=== PATIENT | female | born 1960 | race Caucasian/White ===

== ENCOUNTER → 2018-01-10 | Outpatient (CLI) | payer OTHER ==
[~2018-01-10] MED LIST: AMOXICILLIN500 M2 PO; PREDNISONE20 M1 PO
== END | disposition home or self-care (01) ==
LOC: MAMMO 12-28 10:20
DX: Z12.31 Encounter for screening mammogram for malignant neoplasm of breast (principal)

== ENCOUNTER → 2018-03-03 | Day surgery (SDC) | payer OTHER ==
[~2018-03-03] VITALS: Ht 162.5 cm; Wt 99.8 kg
[~2018-03-03] MED LIST changes: +CELEXA10 MG PO; +PRAVACHOL40 MG PO; +PRILOSEC20 M1 PO; +TOPROL XL25 MG PO
--- NOTE | ~2018-03-03 | O ---
[place], [place] OPERATIVE NOTE NAME: HERSON RAMIREZ UNIT #: [id number] ROOM: DOCTOR: LUIS HELTON MD BIRTHDATE: [birth year] DOS: 03/03/2018 PROCEDURES: 1. Esophagogastroduodenoscopy and biopsy. 2. Colonoscopy. INDICATION: GERD and colon cancer screening. An informed consent was obtained from the patient after indication of procedures, alternatives, and potential complications were explained to her. PROCEDURE MEDICATION: Sedation was administered by Anesthesiology Department. SCOPE USED: Olympus pediatric colonoscope variable stiffness GIF-180. Depth of insertion with upper endoscopy was descending duodenum, with the colonoscopy was to the cecum which was identified by the usual landmarks, the appendiceal orifice, ileocecal valve and triangular fold, in addition to transillumination in the right lower quadrant. FINDINGS: After adequate sedation, the patient was placed in left lateral decubitus position. Upper endoscopy was performed first. Scope was introduced under direct visualization through the upper esophageal sphincter into the esophagus. Esophageal mucosa appeared normal with no ulcerations or strictures. Lower esophageal sphincter was identified at 38 cm from incisors, normal appearing Z line. The stomach was then intubated. Gastric mucosa inspected. Moderate gastritis was seen. No discrete ulcers or active bleeding. CLOtest was performed from gastric antrum and body. On retroflexed views in the fundus, a grade 2 sliding hiatal hernia was identified. Pylorus was intubated easily. The duodenal bulb and descending duodenum were within normal range. The scope was then withdrawn after the stomach was decompressed. We then proceeded with the colonoscopy. Rectal examination showed a diminished sphincter tone and no external hemorrhoids. Scope was introduced into the rectum, then advanced to the cecum with no difficulty. The prep was good. The colon mucosa appeared normal with no evidence of polyps, diverticular ulcerations. Retroflexed views in the rectum showed grade 1 internal hemorrhoids. The scope was then withdrawn after the rectum was decompressed. The patient tolerated the procedures well. IMPRESSION: 1. Medium sized hiatal hernia. 2. Gastritis, CLOtest performed. 3. Normal colon mucosa, no polyps seen. 4. Internal hemorrhoids. PLAN: We will review the CLOtest results and treat the patient accordingly. Repeat screening colonoscopy was advised in 10 years. Office followup will be scheduled in 2-3 weeks. [place], [place] OPERATIVE NOTE NAME: HERSON RAMIREZ UNIT #: [id number] ROOM: DOCTOR: LUIS HELTON MD BIRTHDATE: [birth year] LUIS HELTON MD CM:OPRECORD:OPERATIVE NOTE [id number] LUIS HELTON MD 03/03/18 2005 interface
[2018-03-03 07:36] VITALS: BP 142/77
[2018-03-03 08:15] VITALS: BP 125/90
[2018-03-03 08:24] VITALS: BP 126/69
[2018-03-03 08:42] VITALS: BP 138/58
== END | disposition home or self-care (01) ==
LOC: SDC 02-28 08:00
DX: Z12.11 Encounter for screening for malignant neoplasm of colon (principal); K29.70 Gastritis, unspecified, without bleeding; K44.9 Diaphragmatic hernia without obstruction or gangrene; K64.8 Other hemorrhoids; I10 Essential (primary) hypertension; M19.90 Unspecified osteoarthritis, unspecified site; K21.9 Gastro-esophageal reflux disease without esophagitis; E78.5 Hyperlipidemia, unspecified; E66.01 Morbid (severe) obesity due to excess calories; F32.9 Major depressive disorder, single episode, unspecified; Z85.828 Personal history of other malignant neoplasm of skin; Z90.49 Acquired absence of other specified parts of digestive tract; Z79.899 Other long term (current) drug therapy; Z79.82 Long term (current) use of aspirin; Z82.49 Family history of ischemic heart disease and other diseases of the circulatory system; Z83.3 Family history of diabetes mellitus; Z68.37 Body mass index [BMI] 37.0-37.9, adult

== ENCOUNTER → 2018-04-03 | Outpatient (CLI) | payer OTHER ==
--- NOTE | ~2018-04-03 | EKG ---
[place], [place] ELECTROCARDIOGRAM REPORT NAME: HERSON DIAS UNIT #: [id number] ROOM: DOCTOR: EPIPHANY DRAFT REPORT BIRTHDATE: [address] 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
[2018-04-03 10:32] LABS: HEMATOCRIT 42.9 % (37.0-47.0); HEMOGLOBIN 14.4 g/dl (12.0-16.0); MEAN CELL VOLUME 86.3 fl (81.0-99.0); MEAN CORPUSCULAR HGB CONC 33.6 g/dl (33.0-37.0); MEAN PLATELET VOLUME 12.8 fl (9.6-12.3); RED BLOOD COUNT 4.97 10*6/uL (4.10-5.10); RED CELL DISTRI WIDTH 14.1 % (0-14.5); WHITE BLOOD COUNT 7.6 10*3/uL (4.8-10.8)
[2018-04-03 10:57] LABS: ALBUMIN 3.7 gm/dl (3.1-4.5); ALKALINE PHOSPHATASE 176 U/L (45-117); BUN 21 mg/dl (7-24); CHLORIDE 106 mmol/L (98-107); CHOLESTEROL 139 mg/dL (<200); CREATININE 1.03 mg/dL (0.55-1.02); HDL CHOLESTEROL 43 mg/dl (40-60); LDL CHOLESTEROL 73 mg/dL (9-159); POTASSIUM 3.7 mmol/L (3.5-5.1); SGOT/AST 29 IU/L (3-35); SGPT/ALT 48 U/L (12-78); SODIUM 140 mmol/L (136-145); TOTAL PROTEIN 7.6 gm/dL (6.4-8.2); TRIGLYCERIDES 114 mg/dl (<150); VLDL CHOLESTEROL 23 mg/dL (6-40)
== END | disposition home or self-care (01) ==
LOC: LAB 09:34
PROVIDERS: Registered Nurse Flight
DX: I10 Essential (primary) hypertension (principal); E78.2 Mixed hyperlipidemia; G89.29 Other chronic pain

== ENCOUNTER → 2018-04-26 | Outpatient (CLI) | payer OTHER | END | disposition home or self-care (01) | LOC: US 14:58 | DX: R60.0 Localized edema (principal) ==

== ENCOUNTER → 2018-07-20 | Outpatient (CLI) | payer OTHER ==
[2018-07-20 10:39] LABS: BASO % 0.4 % (0.0-1.0); EOS # 0.2 10*3/uL (0.0-0.4); EOS % 1.9 % (1.0-4.0); HEMOGLOBIN 14.1 g/dl (12.0-16.0); LYMPH # 2.3 10*3/uL (1.3-4.4); LYMPH % 27.5 % (27.0-41.0); MEAN CELL VOLUME 88.1 fl (81.0-99.0); MEAN CORPUSCULAR HGB 29.6 pg (27.0-31.0); MEAN CORPUSCULAR HGB CONC 33.6 g/dl (33.0-37.0); MEAN PLATELET VOLUME 11.7 fl (9.6-12.3); MONO # 0.5 10*3/uL (0.1-1.0); MONO % 5.6 % (3.0-9.0); NEUT # 5.3 10*3/uL (2.3-7.9); NEUT % 64.1 % (47.0-73.0); PLATELET COUNT AUTOMATED 211 10*3/uL (130-400); RED BLOOD COUNT 4.77 10*6/uL (4.10-5.10); RED CELL DISTRI WIDTH 13.8 % (0-14.5); WHITE BLOOD COUNT 8.3 10*3/uL (4.8-10.8)
[2018-07-20 11:01] LABS: ALBUMIN 3.7 gm/dl (3.1-4.5); BUN 18 mg/dl (7-24); CHLORIDE 105 mmol/L (98-107); CHOLESTEROL 150 mg/dL (<200); CREATININE 1.06 mg/dL (0.55-1.02); POTASSIUM 3.9 mmol/L (3.5-5.1); SGOT/AST 28 IU/L (3-35); SGPT/ALT 59 U/L (12-78); SODIUM 139 mmol/L (136-145)
[2018-07-20 11:03] LABS: ALKALINE PHOSPHATASE 177 U/L (45-117); HDL CHOLESTEROL 40 mg/dl (40-60); LDL CHOLESTEROL 81 mg/dL (9-159); TOTAL PROTEIN 7.7 gm/dL (6.4-8.2); TRIGLYCERIDES 147 mg/dl (<150); VLDL CHOLESTEROL 29 mg/dL (6-40)
== END | disposition home or self-care (01) ==
LOC: LAB 09:39 → US 10:00
PROVIDERS: Registered Nurse Flight
DX: K76.0 Fatty (change of) liver, not elsewhere classified (principal); R74.8 Abnormal levels of other serum enzymes; N18.3 Chronic kidney disease, stage 3 (moderate); E78.2 Mixed hyperlipidemia; Z90.49 Acquired absence of other specified parts of digestive tract

== ENCOUNTER 2020-04-17 14:09 | Inpatient (IN) | payer OTHER ==
[~2020-04-17] VITALS: Ht 162.6 cm; Wt 106.6 kg
[2020-04-17 14:17] VITALS: BP 135/64
[2020-04-17 14:36] LABS: BASO % 0.4 % (0.0-1.0); EOS # 0.1 10*3/uL (0.0-0.4); EOS % 1.5 % (1.0-4.0); HEMATOCRIT 39.6 % (37.0-47.0); LYMPH # 2.2 10*3/uL (1.3-4.4); LYMPH % 29.4 % (27.0-41.0); MEAN CELL VOLUME 87.4 fl (81.0-99.0); MEAN CORPUSCULAR HGB 29.4 pg (27.0-31.0); MEAN CORPUSCULAR HGB CONC 33.6 g/dl (33.0-37.0); MONO # 0.5 10*3/uL (0.1-1.0); MONO % 6.1 % (3.0-9.0); NEUT # 4.6 10*3/uL (2.3-7.9); NEUT % 62.5 % (47.0-73.0); PLATELET COUNT AUTOMATED 223 10*3/uL (130-400); RED BLOOD COUNT 4.53 10*6/uL (4.10-5.10); RED CELL DISTRI WIDTH 13.7 % (0-14.5); WHITE BLOOD COUNT 7.4 10*3/uL (4.8-10.8)
[2020-04-17 14:49] LABS: ACT PARTIAL THROMBO TIME 28.9 SECONDS (20.0-32.1)
[2020-04-17 14:53] LABS: ALBUMIN 3.6 gm/dl (3.1-4.5); CREATININE 1.22 mg/dL (0.55-1.02); POTASSIUM 2.9 mmol/L (3.5-5.1); TOTAL PROTEIN 7.6 gm/dL (6.4-8.2)
[2020-04-17 14:58] LABS: TROPONIN I 0.102 ng/ml (<0.045)
[2020-04-17 15:42] VITALS: BP 136/64
[2020-04-17 16:24] VITALS: BP 132/61
[2020-04-17 17:30] VITALS: BP 126/68
[2020-04-17] MEDS ORDERED: VITAMIN E-20200 UNIT PO (18:57)
[2020-04-17] MEDS ORDERED: LISINOPRIL-HCT1 EACH PO (18:59)
[2020-04-17 20:00] VITALS: BP 111/59
[2020-04-18] VITALS: BP 115/43
[2020-04-18 06:19] LABS: BASO % 0.3 % (0.0-1.0); EOS # 0.1 10*3/uL (0.0-0.4); EOS % 2.2 % (1.0-4.0); HEMATOCRIT 37.6 % (37.0-47.0); LYMPH # 2.1 10*3/uL (1.3-4.4); LYMPH % 34.1 % (27.0-41.0); MEAN CELL VOLUME 87.6 fl (81.0-99.0); MEAN CORPUSCULAR HGB 28.9 pg (27.0-31.0); MEAN PLATELET VOLUME 12.2 fl (9.6-12.3); MONO # 0.4 10*3/uL (0.1-1.0); MONO % 6.5 % (3.0-9.0); NEUT # 3.4 10*3/uL (2.3-7.9); NEUT % 56.6 % (47.0-73.0); PLATELET COUNT AUTOMATED 187 10*3/uL (130-400); RED BLOOD COUNT 4.29 10*6/uL (4.10-5.10); RED CELL DISTRI WIDTH 13.7 % (0-14.5)
[2020-04-18 06:41] LABS: ACT PARTIAL THROMBO TIME 65.9 SECONDS (20.0-32.1)
[2020-04-18 06:59] LABS: ALBUMIN 3.2 gm/dl (3.1-4.5); ALKALINE PHOSPHATASE 107 U/L (45-117); BUN 13 mg/dl (7-24); CHLORIDE 109 mmol/L (98-107); CHOLESTEROL 194 mg/dL (<200); CREATININE 1.04 mg/dL (0.55-1.02); HDL CHOLESTEROL 38 mg/dl (40-60); LDL CHOLESTEROL 128 mg/dL (9-159); POTASSIUM 3.1 mmol/L (3.5-5.1); SGOT/AST 22 IU/L (3-35); SGPT/ALT 23 U/L (12-78); SODIUM 143 mmol/L (136-145); TOTAL PROTEIN 6.5 gm/dL (6.4-8.2); TRIGLYCERIDES 138 mg/dl (<150); VLDL CHOLESTEROL 28 mg/dL (6-40)
[2020-04-18 07:49] LABS: VITAMIN D, 25-HYDROXY 25.4 ng/mL (30-100)
[2020-04-18 08:00] VITALS: BP 102/43
[2020-04-18] MEDS ORDERED: ASPIRIN ADULT L81 M1 PO (09:33)
== END 2020-04-18 11:17 | disposition short-term general hospital (02) | DRG 190 ==
LOC: ED 14:09 → 4E 15:35 → EDHOLD 15:35 → 4E 15:52
PROVIDERS: Emergency Medicine; ADMIT Family Medicine; ATTEND Family Medicine
DX: I21.4 Non-ST elevation (NSTEMI) myocardial infarction (principal); N17.0 Acute kidney failure with tubular necrosis; F41.0 Panic disorder [episodic paroxysmal anxiety]; E87.6 Hypokalemia; R00.1 Bradycardia, unspecified; R73.9 Hyperglycemia, unspecified; E83.41 Hypermagnesemia; I10 Essential (primary) hypertension; E78.5 Hyperlipidemia, unspecified; E66.01 Morbid (severe) obesity due to excess calories; F32.9 Major depressive disorder, single episode, unspecified; Z83.3 Family history of diabetes mellitus; Z82.49 Family history of ischemic heart disease and other diseases of the circulatory system; Z90.49 Acquired absence of other specified parts of digestive tract; Z80.6 Family history of leukemia; Z80.8 Family history of malignant neoplasm of other organs or systems; Z79.82 Long term (current) use of aspirin; Z79.899 Other long term (current) drug therapy; Z68.41 Body mass index [BMI] 40.0-44.9, adult

== ENCOUNTER 2020-08-14 21:18 | Observation (INO) | payer OTHER ==
[2020-08-14] VITALS (13 sets, daily range): BP systolic 100–130; BP diastolic 32–75
[~2020-08-14] VITALS: Ht 163 cm; Wt 90.7 kg
[~2020-08-14 21:18] MED LIST changes: +ASPIRIN ADULT L81 M1 PO; +LISINOPRIL-HCT1 EACH PO; +VITAMIN E-20200 UNIT PO
[2020-08-14 21:48] LABS: BASO # 0.1 10*3/uL (0.0-0.1); BASO % 0.4 % (0.0-1.0); EOS # 0.1 10*3/uL (0.0-0.4); EOS % 0.5 % (1.0-4.0); LYMPH # 3.1 10*3/uL (1.3-4.4); LYMPH % 27.3 % (27.0-41.0); MEAN CELL VOLUME 82.7 fl (81.0-99.0); MEAN CORPUSCULAR HGB 26.6 pg (27.0-31.0); MEAN CORPUSCULAR HGB CONC 32.2 g/dl (33.0-37.0); MEAN PLATELET VOLUME 12.2 fl (9.6-12.3); MONO # 0.8 10*3/uL (0.1-1.0); MONO % 6.9 % (3.0-9.0); NEUT # 7.3 10*3/uL (2.3-7.9); NEUT % 64.6 % (47.0-73.0); PLATELET COUNT AUTOMATED 325 10*3/uL (130-400); RED BLOOD COUNT 4.96 10*6/uL (4.10-5.10); RED CELL DISTRI WIDTH 14.7 % (0-14.5); WHITE BLOOD COUNT 11.3 10*3/uL (4.8-10.8)
[2020-08-14 21:59] LABS: ACT PARTIAL THROMBO TIME 31.2 SECONDS (20.0-32.1); INTERNATIONAL NORM RATIO 1.1 (2.0-3.5)
[2020-08-14 22:06] LABS: ALBUMIN 3.5 gm/dl (3.1-4.5); ALKALINE PHOSPHATASE 192 U/L (45-117); BUN 12 mg/dl (7-24); CHLORIDE 105 mmol/L (98-107); CREATININE 0.92 mg/dL (0.55-1.02); POTASSIUM 3.5 mmol/L (3.5-5.1); SGOT/AST 13 IU/L (3-35); SGPT/ALT 22 U/L (12-78); SODIUM 136 mmol/L (136-145); TOTAL PROTEIN 8.8 gm/dL (6.4-8.2)
[2020-08-14 22:26] LABS: TROPONIN I < 0.015 ng/ml (<0.045)
[2020-08-14] MEDS ORDERED: CETIRIZINE HYDR10 MG PO (23:43)
[2020-08-14] MEDS ORDERED: ATORVASTATIN CA40 M1 PO (23:45)
[2020-08-14] MEDS ORDERED: CLOPIDOGREL75 MG PO (23:46)
[2020-08-14] MEDS ORDERED: FEROSUL325 MG PO (23:47)
[2020-08-14] MEDS ORDERED: METOPROLOL TART50 M1 PO (23:47)
[2020-08-14] MEDS ORDERED: NATURE'S BLEND F1 MG PO (23:48)
[2020-08-14] MEDS ORDERED: TRAZODONE50 MG PO (23:49)
[2020-08-14] MEDS ORDERED: FLONASE ALLERG9.9 ML NAS (23:51)
[2020-08-15] MEDS ORDERED: VITAMIN C500 M7 PO (01:26)
[2020-08-15 03:45] LABS: BASO % 0.2 % (0.0-1.0); EOS % 0.2 % (1.0-4.0); HEMATOCRIT 37.6 % (37.0-47.0); LYMPH # 2.1 10*3/uL (1.3-4.4); LYMPH % 23.8 % (27.0-41.0); MEAN CELL VOLUME 83.2 fl (81.0-99.0); MEAN CORPUSCULAR HGB 26.8 pg (27.0-31.0); MEAN CORPUSCULAR HGB CONC 32.2 g/dl (33.0-37.0); MEAN PLATELET VOLUME 11.8 fl (9.6-12.3); MONO # 0.7 10*3/uL (0.1-1.0); MONO % 7.9 % (3.0-9.0); NEUT # 5.9 10*3/uL (2.3-7.9); NEUT % 67.6 % (47.0-73.0); PLATELET COUNT AUTOMATED 238 10*3/uL (130-400); RED BLOOD COUNT 4.52 10*6/uL (4.10-5.10); RED CELL DISTRI WIDTH 14.6 % (0-14.5); WHITE BLOOD COUNT 8.8 10*3/uL (4.8-10.8)
[2020-08-15 04:03] LABS: ALBUMIN 3.2 gm/dl (3.1-4.5); ALKALINE PHOSPHATASE 167 U/L (45-117); BUN 11 mg/dl (7-24); CHLORIDE 109 mmol/L (98-107); CREATININE 0.77 mg/dL (0.55-1.02); POTASSIUM 3.5 mmol/L (3.5-5.1); SGOT/AST 10 IU/L (3-35); SGPT/ALT 17 U/L (12-78); SODIUM 140 mmol/L (136-145); TOTAL PROTEIN 7.6 gm/dL (6.4-8.2)
[2020-08-15 08:00] VITALS: BP 112/52
[2020-08-15 12:00] VITALS: BP 110/56
[2020-08-15] MEDS ORDERED: XARE20MG PO (14:37)
[2020-08-15] MEDS ORDERED: METOPROLOL SUCC50 M1 PO (14:38)
[2020-08-15 16:00] VITALS: BP 118/56
== END 2020-08-15 18:17 | disposition home or self-care (01) ==
LOC: ED 21:18 → EDHOLD 23:08 → 4E 23:42
PROVIDERS: Emergency Medicine; Social Worker Clinical; ADMIT Student in an Organized Health Care Education/Training Program; ATTEND Student in an Organized Health Care Education/Training Program
DX: I48.91 Unspecified atrial fibrillation (principal); R00.2 Palpitations; R07.9 Chest pain, unspecified; R73.9 Hyperglycemia, unspecified; D72.829 Elevated white blood cell count, unspecified; I10 Essential (primary) hypertension; F32.9 Major depressive disorder, single episode, unspecified; F41.0 Panic disorder [episodic paroxysmal anxiety]; I25.10 Atherosclerotic heart disease of native coronary artery without angina pectoris; J98.6 Disorders of diaphragm; I42.4 Endocardial fibroelastosis; I21.4 Non-ST elevation (NSTEMI) myocardial infarction; Z90.49 Acquired absence of other specified parts of digestive tract; Z98.890 Other specified postprocedural states

== ENCOUNTER → 2020-08-22 | Outpatient (CLI) | payer OTHER ==
[~2020-08-22] MED LIST changes: +ATORVASTATIN CA40 M1 PO; +CETIRIZINE HYDR10 MG PO; +CLOPIDOGREL75 MG PO; +FEROSUL325 MG PO; +FLONASE ALLERG9.9 ML NAS; +METOPROLOL SUCC50 M1 PO; +METOPROLOL TART50 M1 PO; +NATURE'S BLEND F1 MG PO; +TRAZODONE50 MG PO; +VITAMIN C500 M7 PO; +XARE20MG PO
[2020-08-22 10:32] LABS: CHOLESTEROL 117 mg/dL (<200); TRIGLYCERIDES 131 mg/dl (<150); VLDL CHOLESTEROL 26 mg/dL (6-40)
[2020-08-22 10:34] LABS: HDL CHOLESTEROL 38 mg/dl (40-60); LDL CHOLESTEROL 53 mg/dL (9-159)
== END | disposition home or self-care (01) ==
LOC: RESCLI 00:54
PROVIDERS: Internal Medicine; ATTEND Internal Medicine
DX: I48.91 Unspecified atrial fibrillation (principal); I25.10 Atherosclerotic heart disease of native coronary artery without angina pectoris; E78.5 Hyperlipidemia, unspecified; F32.9 Major depressive disorder, single episode, unspecified; D50.9 Iron deficiency anemia, unspecified; K21.9 Gastro-esophageal reflux disease without esophagitis; J30.9 Allergic rhinitis, unspecified; E55.9 Vitamin D deficiency, unspecified; E54 Ascorbic acid deficiency; E56.0 Deficiency of vitamin E; Z76.89 Persons encountering health services in other specified circumstances; Z79.899 Other long term (current) drug therapy; Z90.49 Acquired absence of other specified parts of digestive tract; Z98.890 Other specified postprocedural states

== ENCOUNTER → 2020-08-25 | Outpatient (CLI) | payer OTHER | END | disposition home or self-care (01) | LOC: CT 12:44 | PROVIDERS: ATTEND Student in an Organized Health Care Education/Training Program | DX: N20.0 Calculus of kidney (principal); K44.9 Diaphragmatic hernia without obstruction or gangrene; Q79.1 Other congenital malformations of diaphragm; M48.04 Spinal stenosis, thoracic region; Z90.49 Acquired absence of other specified parts of digestive tract ==

== ENCOUNTER 2020-09-13 22:30 | Emergency (ER) | payer OTHER ==
[~2020-09-13] VITALS: Ht 162.5 cm; Wt 92.1 kg
[2020-09-13 23:07] LABS: BASO % 0.5 % (0.0-1.0); EOS # 0.2 10*3/uL (0.0-0.4); EOS % 3.8 % (1.0-4.0); HEMATOCRIT 37.8 % (37.0-47.0); LYMPH # 2.1 10*3/uL (1.3-4.4); LYMPH % 34.1 % (27.0-41.0); MEAN CELL VOLUME 83.4 fl (81.0-99.0); MEAN CORPUSCULAR HGB CONC 31.2 g/dl (33.0-37.0); MEAN PLATELET VOLUME 11.5 fl (9.6-12.3); MONO # 0.6 10*3/uL (0.1-1.0); MONO % 9.2 % (3.0-9.0); NEUT # 3.1 10*3/uL (2.3-7.9); NEUT % 52.2 % (47.0-73.0); PLATELET COUNT AUTOMATED 193 10*3/uL (130-400); RED BLOOD COUNT 4.53 10*6/uL (4.10-5.10); RED CELL DISTRI WIDTH 15.7 % (0-14.5)
[2020-09-13 23:24] LABS: ALBUMIN 3.2 gm/dl (3.1-4.5); ALKALINE PHOSPHATASE 157 U/L (45-117); BUN 10 mg/dl (7-24); CHLORIDE 115 mmol/L (98-107); CREATININE 0.84 mg/dL (0.55-1.02); POTASSIUM 3.1 mmol/L (3.5-5.1); SGOT/AST 13 IU/L (3-35); SGPT/ALT 23 U/L (12-78); SODIUM 144 mmol/L (136-145); TOTAL PROTEIN 7.1 gm/dL (6.4-8.2)
[2020-09-13 23:27] LABS: TROPONIN I < 0.015 ng/ml (<0.045)
== END 2020-09-14 00:01 | disposition home or self-care (01) ==
LOC: ED 22:30
PROVIDERS: Internal Medicine
DX: I47.1 Supraventricular tachycardia (principal); E87.6 Hypokalemia; Z79.899 Other long term (current) drug therapy; Z90.49 Acquired absence of other specified parts of digestive tract; Z98.51 Tubal ligation status; Z98.890 Other specified postprocedural states

== ENCOUNTER 2020-10-29 00:48 | Emergency (ER) | payer OTHER ==
[~2020-10-29] VITALS: Ht 167.6 cm; Wt 104.8 kg
[2020-10-29 01:57] LABS: BASO % 0.3 % (0.0-1.0); EOS # 0.1 10*3/uL (0.0-0.4); EOS % 1.5 % (1.0-4.0); HEMATOCRIT 37.8 % (37.0-47.0); LYMPH # 2.2 10*3/uL (1.3-4.4); LYMPH % 23.6 % (27.0-41.0); MEAN CORPUSCULAR HGB 26.2 pg (27.0-31.0); MEAN PLATELET VOLUME 11.6 fl (9.6-12.3); MONO # 0.7 10*3/uL (0.1-1.0); MONO % 7.1 % (3.0-9.0); NEUT # 6.1 10*3/uL (2.3-7.9); NEUT % 67.2 % (47.0-73.0); PLATELET COUNT AUTOMATED 209 10*3/uL (130-400); RED BLOOD COUNT 4.61 10*6/uL (4.10-5.10); WHITE BLOOD COUNT 9.2 10*3/uL (4.8-10.8)
[2020-10-29 02:15] LABS: ALBUMIN 3.3 gm/dl (3.1-4.5); ALKALINE PHOSPHATASE 173 U/L (45-117); BUN 14 mg/dl (7-24); CHLORIDE 112 mmol/L (98-107); CREATININE 0.99 mg/dL (0.55-1.02); POTASSIUM 3.5 mmol/L (3.5-5.1); SGOT/AST 20 IU/L (3-35); SGPT/ALT 32 U/L (12-78); SODIUM 143 mmol/L (136-145); TOTAL PROTEIN 7.6 gm/dL (6.4-8.2)
[2020-10-29 02:16] LABS: TROPONIN I 0.023 ng/ml (<0.045)
== END 2020-10-29 03:57 | disposition home or self-care (01) ==
LOC: ED 00:48
PROVIDERS: Internal Medicine
DX: R00.2 Palpitations (principal); I10 Essential (primary) hypertension; K21.9 Gastro-esophageal reflux disease without esophagitis; Z95.1 Presence of aortocoronary bypass graft; Z90.49 Acquired absence of other specified parts of digestive tract; Z98.890 Other specified postprocedural states; Z98.51 Tubal ligation status

== ENCOUNTER 2020-11-20 20:21 | Emergency (ER) | payer OTHER ==
[~2020-11-20] VITALS: Ht 165.1 cm; Wt 90.7 kg
[2020-11-20 21:27] LABS: INTERNATIONAL NORM RATIO 1.3 (2.0-3.5)
[2020-11-20 21:40] LABS: ALBUMIN 3.4 gm/dl (3.1-4.5); ALKALINE PHOSPHATASE 191 U/L (45-117); BUN 11 mg/dl (7-24); CHLORIDE 111 mmol/L (98-107); CREATININE 0.96 mg/dL (0.55-1.02); POTASSIUM 3.5 mmol/L (3.5-5.1); SGOT/AST 19 IU/L (3-35); SGPT/ALT 28 U/L (12-78); SODIUM 141 mmol/L (136-145); TOTAL PROTEIN 7.9 gm/dL (6.4-8.2)
[2020-11-20 21:49] LABS: TROPONIN I < 0.015 ng/ml (<0.045)
== END 2020-11-21 00:38 | disposition home or self-care (01) ==
LOC: ED 20:21
PROVIDERS: Emergency Medicine
DX: I48.91 Unspecified atrial fibrillation (principal); I10 Essential (primary) hypertension; Z98.84 Bariatric surgery status; Z79.899 Other long term (current) drug therapy; Z90.49 Acquired absence of other specified parts of digestive tract; Z98.51 Tubal ligation status

== ENCOUNTER → 2021-01-28 | Outpatient (CLI) | payer OTHER | END | disposition home or self-care (01) | LOC: RESCLI 00:29 | PROVIDERS: ATTEND Emergency Medicine | DX: I48.91 Unspecified atrial fibrillation (principal); I25.10 Atherosclerotic heart disease of native coronary artery without angina pectoris; E55.9 Vitamin D deficiency, unspecified; E78.5 Hyperlipidemia, unspecified; F32.9 Major depressive disorder, single episode, unspecified; K21.9 Gastro-esophageal reflux disease without esophagitis; J30.9 Allergic rhinitis, unspecified; E54 Ascorbic acid deficiency; E56.0 Deficiency of vitamin E; J98.6 Disorders of diaphragm; E66.9 Obesity, unspecified; Z90.49 Acquired absence of other specified parts of digestive tract; Z98.890 Other specified postprocedural states; Z79.899 Other long term (current) drug therapy ==

== ENCOUNTER 2021-05-12 17:35 | Observation (INO) | payer OTHER ==
[~2021-05-12] VITALS: Ht 167.6 cm; Wt 95.3 kg
[2021-05-12 18:12] VITALS: BP 116/73
[2021-05-12 18:23] LABS: BASO % 0.3 % (0.0-1.0); EOS # 0.2 10*3/uL (0.0-0.4); EOS % 2.2 % (1.0-4.0); HEMATOCRIT 38.8 % (37.0-47.0); LYMPH # 2.3 10*3/uL (1.3-4.4); LYMPH % 25.3 % (27.0-41.0); MEAN CELL VOLUME 83.8 fl (81.0-99.0); MEAN CORPUSCULAR HGB 27.4 pg (27.0-31.0); MEAN CORPUSCULAR HGB CONC 32.7 g/dl (33.0-37.0); MEAN PLATELET VOLUME 11.7 fl (9.6-12.3); MONO # 0.5 10*3/uL (0.1-1.0); MONO % 5.6 % (3.0-9.0); NEUT # 6.1 10*3/uL (2.3-7.9); NEUT % 66.3 % (47.0-73.0); PLATELET COUNT AUTOMATED 225 10*3/uL (130-400); RED BLOOD COUNT 4.63 10*6/uL (4.10-5.10); RED CELL DISTRI WIDTH 15.5 % (0-14.5); WHITE BLOOD COUNT 9.3 10*3/uL (4.8-10.8)
[2021-05-12 18:38] LABS: ALBUMIN 3.5 gm/dl (3.1-4.5); ALKALINE PHOSPHATASE 193 U/L (45-117); BUN 14 mg/dl (7-24); CHLORIDE 111 mmol/L (98-107); CREATININE 0.95 mg/dL (0.55-1.02); POTASSIUM 3.5 mmol/L (3.5-5.1); SGOT/AST 35 IU/L (3-35); SGPT/ALT 49 U/L (12-78); SODIUM 141 mmol/L (136-145)
[2021-05-12 19:48] VITALS: BP 127/68
[2021-05-13 00:38] VITALS: BP 130/51
[2021-05-13 05:00] VITALS: BP 128/75
[2021-05-13 06:34] LABS: BASO % 0.4 % (0.0-1.0); EOS # 0.1 10*3/uL (0.0-0.4); EOS % 2.1 % (1.0-4.0); HEMATOCRIT 39.1 % (37.0-47.0); LYMPH # 2.1 10*3/uL (1.3-4.4); LYMPH % 30.1 % (27.0-41.0); MEAN CELL VOLUME 86.1 fl (81.0-99.0); MEAN CORPUSCULAR HGB 27.3 pg (27.0-31.0); MEAN CORPUSCULAR HGB CONC 31.7 g/dl (33.0-37.0); MEAN PLATELET VOLUME 11.8 fl (9.6-12.3); MONO # 0.5 10*3/uL (0.1-1.0); MONO % 6.9 % (3.0-9.0); NEUT # 4.1 10*3/uL (2.3-7.9); NEUT % 60.2 % (47.0-73.0); PLATELET COUNT AUTOMATED 190 10*3/uL (130-400); RED BLOOD COUNT 4.54 10*6/uL (4.10-5.10); RED CELL DISTRI WIDTH 15.7 % (0-14.5); WHITE BLOOD COUNT 6.8 10*3/uL (4.8-10.8)
[2021-05-13 06:45] LABS: ALBUMIN 3.2 gm/dl (3.1-4.5); ALKALINE PHOSPHATASE 178 U/L (45-117); BUN 14 mg/dl (7-24); CHLORIDE 110 mmol/L (98-107); CREATININE 0.87 mg/dL (0.55-1.02); POTASSIUM 3.6 mmol/L (3.5-5.1); SGOT/AST 30 IU/L (3-35); SGPT/ALT 45 U/L (12-78); SODIUM 142 mmol/L (136-145); TOTAL PROTEIN 7.4 gm/dL (6.4-8.2)
[2021-05-13 07:43] VITALS: BP 117/57
[2021-05-13 12:00] VITALS: BP 119/76
[2021-05-13] MEDS ORDERED: METOPROLOL SUCC50 M1 PO (13:43)
[2021-05-13] MEDS ORDERED: CARDIZEM CD120 M2 PO (13:44)
== END 2021-05-13 17:11 | disposition home or self-care (01) ==
LOC: ED 17:35 → EDHOLD 20:29
PROVIDERS: Hospitalist; Internal Medicine; ADMIT Internal Medicine; ATTEND Internal Medicine
DX: I48.20 Chronic atrial fibrillation, unspecified (principal); E87.8 Other disorders of electrolyte and fluid balance, not elsewhere classified; R74.8 Abnormal levels of other serum enzymes; R77.8 Other specified abnormalities of plasma proteins; F32.9 Major depressive disorder, single episode, unspecified; I10 Essential (primary) hypertension; J98.6 Disorders of diaphragm; H35.30 Unspecified macular degeneration; R73.9 Hyperglycemia, unspecified; Z99.81 Dependence on supplemental oxygen; Z79.01 Long term (current) use of anticoagulants; Z79.899 Other long term (current) drug therapy

== ENCOUNTER → 2021-07-22 | Outpatient (CLI) | payer OTHER ==
[~2021-07-22] MED LIST changes: +CARDIZEM CD120 M2 PO
== END | disposition home or self-care (01) ==
LOC: RESCLI 01:01
PROVIDERS: ATTEND Student in an Organized Health Care Education/Training Program
DX: I25.10 Atherosclerotic heart disease of native coronary artery without angina pectoris (principal); I48.91 Unspecified atrial fibrillation; E78.5 Hyperlipidemia, unspecified; D50.9 Iron deficiency anemia, unspecified; K21.9 Gastro-esophageal reflux disease without esophagitis; J30.9 Allergic rhinitis, unspecified; E55.9 Vitamin D deficiency, unspecified; E54 Ascorbic acid deficiency; K64.9 Unspecified hemorrhoids; M79.601 Pain in right arm; G47.30 Sleep apnea, unspecified; E55.0 Rickets, active; J98.6 Disorders of diaphragm; Z79.899 Other long term (current) drug therapy; Z98.890 Other specified postprocedural states

== ENCOUNTER 2021-11-07 21:26 | Emergency (ER) | payer OTHER ==
[2021-11-08 00:10] LABS: BASO % 0.4 % (0.0-1.0); EOS # 0.2 10*3/uL (0.0-0.4); EOS % 2.1 % (1.0-4.0); HEMATOCRIT 39.9 % (37.0-47.0); LYMPH % 29.4 % (27.0-41.0); MEAN CELL VOLUME 84.9 fl (81.0-99.0); MEAN CORPUSCULAR HGB 27.9 pg (27.0-31.0); MEAN CORPUSCULAR HGB CONC 32.8 g/dl (33.0-37.0); MEAN PLATELET VOLUME 11.6 fl (9.6-12.3); MONO # 0.6 10*3/uL (0.1-1.0); NEUT # 6.4 10*3/uL (2.3-7.9); NEUT % 61.9 % (47.0-73.0); PLATELET COUNT AUTOMATED 219 10*3/uL (130-400); RED CELL DISTRI WIDTH 15.5 % (0-14.5); WHITE BLOOD COUNT 10.3 10*3/uL (4.8-10.8)
[2021-11-08 00:21] LABS: INTERNATIONAL NORM RATIO 1.1 (2.0-3.5)
[2021-11-08 00:26] LABS: ALKALINE PHOSPHATASE 191 U/L (45-117); BUN 11 mg/dl (7-24); CHLORIDE 109 mmol/L (98-107); CREATININE 0.99 mg/dL (0.55-1.02); POTASSIUM 3.5 mmol/L (3.5-5.1); SGOT/AST 27 IU/L (3-35); SGPT/ALT 39 U/L (12-78); SODIUM 143 mmol/L (136-145); TOTAL PROTEIN 7.6 gm/dL (6.4-8.2)
== END 2021-11-08 02:02 | disposition home or self-care (01) ==
LOC: ED 21:26
PROVIDERS: Physician Assistant
DX: I13.0 Hypertensive heart and chronic kidney disease with heart failure and stage 1 through stage 4 chronic kidney disease, or unspecified chronic kidney disease (principal); N18.31 Chronic kidney disease, stage 3a; K21.9 Gastro-esophageal reflux disease without esophagitis; I48.91 Unspecified atrial fibrillation

== ENCOUNTER → 2022-07-15 | Outpatient (CLI) | payer OTHER | END | disposition home or self-care (01) | LOC: RESCLI 01:45 | PROVIDERS: ATTEND Internal Medicine | DX: I48.91 Unspecified atrial fibrillation (principal); E78.5 Hyperlipidemia, unspecified; I25.10 Atherosclerotic heart disease of native coronary artery without angina pectoris; J30.9 Allergic rhinitis, unspecified; E54 Ascorbic acid deficiency; E55.9 Vitamin D deficiency, unspecified; F32.9 Major depressive disorder, single episode, unspecified; G47.30 Sleep apnea, unspecified; K21.9 Gastro-esophageal reflux disease without esophagitis; E87.6 Hypokalemia; Z79.01 Long term (current) use of anticoagulants; Z90.49 Acquired absence of other specified parts of digestive tract; Z98.890 Other specified postprocedural states; Z82.49 Family history of ischemic heart disease and other diseases of the circulatory system; Z79.899 Other long term (current) drug therapy ==